=== PATIENT | female | born 1930 | race Caucasian/White ===

== ENCOUNTER 2017-02-21 21:05 | Emergency (ER) | payer OTHER ==
[~2017-02-21] VITALS: Ht 152.4 cm; Wt 66.2 kg
[2017-02-21 22:03] LABS: HEMATOCRIT 39.1 % (36.0-46.0); MCH 32.4 PG (29.0-34.0); MCV 95.1 FL (83-99); MEAN PLAT.VOLUME 8.1 uM^3 (9.5-12.4); PLATELET COUNT 260 K/uL (156-360); RBC DIS.WIDTH-CV 13.8 % (11.8-14.6); RBC DIS.WIDTH-SD 47.9 % (39-53); RED BLOOD COUNT 4.11 M/uL (3.80-5.20); WHITE BLOOD COUNT 9.4 K/uL (4.1-10.2)
[2017-02-21 22:26] LABS: TROP-I INTERPRETATION NEGATIVE; TROPONIN-I < 0.01 ng/mL (0.0-0.30)
[2017-02-21 22:30] LABS: CHLORIDE 98 mEq/L (99-109); POTASSIUM 3.8 mEq/L (3.7-5.4); SODIUM 134 mEq/L (136-147)
[2017-02-21 22:31] LABS: GLUCOSE 94 mg/dL (70-99)
[2017-02-21 22:33] LABS: ANION GAP 14 MEQ/L (2-14)
[2017-02-21 22:35] LABS: GFR ESTIMATE (CALCULATED) > 59 mL/min/
[2017-02-21 22:36] LABS: UREA NITROGEN (BUN) 14 mg/dL (9-23)
[2017-02-21 23:07] VITALS: BP 122/87
[2017-02-21] MEDS ORDERED: XARELTO20 MG PO (23:09)
== END 2017-02-21 23:09 | disposition home or self-care (01) ==
LOC: EME 21:05
DX: I48.91 Unspecified atrial fibrillation (principal); R00.2 Palpitations; I44.0 Atrioventricular block, first degree
CPT/HCPCS: 71020; 80048; 84484; 85027; 93005; 99281; 99284